=== PATIENT | male | born 1940 | race Caucasian/White ===

== ENCOUNTER → 2017-02-02 | Outpatient (CLI) | payer MEDICARE, OTHER ==
[2017-02-02 08:24] LABS: CHLORIDE,CL 106 mmol/L (98-110); SODIUM,NA 139 mmol/L (136-146)
== END ==
LOC: MW.CHFP 07:33
PROVIDERS: ATTEND Emergency Medicine
DX: Z00.00 Encounter for general adult medical examination without abnormal findings (principal); E79.0 Hyperuricemia without signs of inflammatory arthritis and tophaceous disease; R73.03 Prediabetes; R73.09 Other abnormal glucose
CPT/HCPCS: 36415; 80053; 80061; 83036; 99214

== ENCOUNTER 2018-02-15 08:22 | Day surgery (SDC) | payer MEDICARE, OTHER ==
[~2018-02-15 08:22] MED LIST: Lactated Ringers 1,000 ML IV SCH
--- NOTE | 2018-02-15 08:46 | PCM.PREANE ---
Preanesthetic Assessment - Anesthesia/Transfusion/Family Hx Anesthesia History: Prior Anesthesia Without Reaction Family History of Anesthesia Reaction: No Transfusion History: No Prior Transfusion(s) Intubation History: Unknown - Review of Systems General: No Symptoms Pulmonary: No Symptoms Cardiovascular: No Symptoms Gastrointestinal: No Symptoms, Other (h/o colon polyps) Neurological: No Symptoms Other: Reports: None - Physical Assessment Height: 1.8 m Weight: 83.915 kg ASA Class: 2 Mental Status: Alert & Oriented x3 Airway Class: Mallampati = 2 Dentition: Reports: Normal Dentition Thyro-Mental Finger Breadths: 3 Mouth Opening Finger Breadths: 2 ROM/Head Extension: Limited/Partial Lungs: Clear to Auscultation, Normal Respiratory Effort Cardiovascular: Regular Rate, Regular Rhythm - Allergies Allergies/Adverse Reactions: Allergies Allergy/AdvReac Type Severity Reaction Status Date / Time Sulfa (Sulfonamide Allergy Rash Verified 02/11/18 08:47 Antibiotics) - Blood Blood Available: No - Anesthesia Plan Pre-Op Medication Ordered: None - Acknowledgements Anesthesia Type Planned: MAC Pt an Appropriate Candidate for the Planned Anesthesia: Yes Alternatives and Risks of Anesthesia Discussed w Pt/Guardian: Yes Pt/Guardian Understands and Agrees with Anesthesia Plan: Yes PreAnesthesia Questionnaire HEENT History: Reports: Allergic Rhinitis, Other (See Below) Other HEENT History: wears glasses Gastrointestinal History: Reports: Colon Polyp Genitourinary History: Reports: BPH Musculoskeletal History: Reports: Fracture Other Musculoskeletal History: hx of fx arm x2 as a child Endocrine/Metabolic History: Reports: Other (See Below) Other Endocrine/Metabolic History: pre-diabetic, takes metformin Oncologic (Cancer) History: Reports: Basal Cell Carcinoma 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 - Past Surgical History HEENT Surgical History: Reports: Tonsillectomy GI Surgical History: Reports: Colonoscopy (x2 '08 (polyps), '13 normal), Hernia , Inguinal (bilateral), Hernia Repair/Other (umbilical) - SUBSTANCE USE Smoking Status *Q: Never Smoker Recreational Drug Use History: No - HOME MEDS Home Medications: Home Meds Ascorbate Calcium [Vitamin C] 500 mg PO DAILY 02/11/18 [History] Aspirin [Adult Low Dose Aspirin EC] 81 mg PO DAILY 02/11/18 [History] Finasteride 5 mg PO DAILY 02/11/18 [History] Lisinopril 2.5 mg PO DAILY 02/11/18 [History] Loratadine [Claritin] 10 mg PO DAILY 02/11/18 [History] Multivit-Min/FA/Lycopene/Lut [Centrum Silver Tablet] 1 tab PO DAILY 02/11/18 [ History] metFORMIN HCl [Metformin HCl ER] 500 mg PO QPM 02/11/18 [History] - CURRENT (IN HOUSE) MEDS Current Meds: Current Medications Lactated Ringer's (Ringers, Lactated) 1,000 mls @ 125 mls/hr IV ASDIRECTED GUZMAN
[2018-02-15] MEDS ORDERED: Midazolam 1 MG/ML 2 ML SDV ONE (09:17)
[2018-02-15] MEDS ORDERED: Propofol 200 MG/20 ML SDV ONE ×2 (09:17→10:43)
[2018-02-15] MEDS ORDERED: fentaNYL 100 MCG/2 ML SDV ONE (09:17)
[2018-02-15] MEDS ORDERED: Lidocaine 2% 5 ML SDV ONE (09:17)
--- NOTE | 2018-02-15 10:22 | PCM.OPNOTE ---
- General Post-Op/Procedure Note Date of Surgery/Procedure: 02/15/18 Operative Procedure(s): Colonoscopy Pre Op Diagnosis: Personal history of colon polyps Post-Op Diagnosis: Pancolonic diverticulosis Anesthesia Technique: MAC (ASA II) Primary Surgeon: Solitario Mora Condition: Good Free Text/Narrative:: DICTATION [id number] CPT CODE 03912
[2018-02-15] MEDS ORDERED: Lactated Ringers 1,000 ML IV SCH (10:30)
--- NOTE | 2018-02-15 10:52 | PCM.POSTAN ---
POST ANESTHESIA ASSESSMENT - MENTAL STATUS Mental Status: Alert, Oriented - RESPIRATORY Respiratory Status: Respiratory Rate WNL, Airway Patent, O2 Saturation Stable - CARDIOVASCULAR CV Status: Pulse Rate WNL - GASTROINTESTINAL GI Status: No Symptoms - PAIN Pain Score: 0 - POST OP HYDRATION Hydration Status: Adequate & Stable - OBSERVATIONS Free Text/Narrative:: no anesthesia problems
--- NOTE | 2018-02-15 11:13 | PCM48HPAN ---
Post Anesthesia Note - EVALUATION WITHIN 48HRS OF ANESTHETIC Vital Signs in Normal Range: Yes Patient Participated in Evaluation: Yes Respiratory Function Stable: Yes Airway Patent: Yes Cardiovascular Function Stable: Yes Hydration Status Stable: Yes Pain Control Satisfactory: Yes Nausea and Vomiting Control Satisfactory: Yes Mental Status Recovered: Yes Resp Rate: 9 - COMMENTS/OBSERVATIONS Free Text/Narrative:: no anesthesia problems
--- NOTE | 2018-02-15 14:13 | OR ---
SURGEON: Solitario Mora M.D. DATE OF PROCEDURE: 02/15/2018 OPERATION PERFORMED: Colonoscopy. ANESTHESIA: MAC. ASA CLASSIFICATION: II. PREOPERATIVE DIAGNOSIS: Personal history of colon polyps. POSTOPERATIVE DIAGNOSIS: Pancolonic diverticulosis. DESCRIPTION OF PROCEDURE: The patient was taken to the endoscopy room, positioned on the endoscopy table in the left lateral decubitus position. Time-out was called for appropriate identification of the patient and procedure. Monitored anesthesia care was provided. The colonoscope was inserted into the rectum and advanced with minimal difficulty to the cecum where the colonoscope was retroflexed to visualize the ascending colon from below. The colonoscope was then straightened and slowly withdrawn. The patient does have diverticular changes scattered throughout the entire length of the colon beginning in the ascending colon. The cecum, ascending colon, hepatic flexure, transverse colon, splenic flexure, descending colon, sigmoid colon, and rectum were very well visualized. No tumors or polyps were encountered. Once the colonoscope was withdrawn to the rectum, it was retroflexed to visualize the anal orifice from above. Again, no tumors or polyps were seen. There were no acute hemorrhoidal changes. The colonoscope was then straightened, the rectum aspirated, and the colonoscope removed. The patient tolerated the procedure well and was taken to recovery room in stable condition. YAMILETH / ADEOLA /[id number]
== END 2018-02-15 11:11 | disposition home or self-care (01) ==
LOC: MW.SDS 08:22
PROVIDERS: ATTEND Surgery
DX: Z12.11 Encounter for screening for malignant neoplasm of colon (principal); K57.30 Diverticulosis of large intestine without perforation or abscess without bleeding; R73.03 Prediabetes; Z86.010 Personal history of colon polyps; Z79.82 Long term (current) use of aspirin; Z79.84 Long term (current) use of oral hypoglycemic drugs; Z79.899 Other long term (current) drug therapy; Z88.2 Allergy status to sulfonamides; Z91.048 Other nonmedicinal substance allergy status
CPT/HCPCS: G0121; J2250; J3010; J7120; 00811; J2704

== ENCOUNTER 2020-04-07 14:39 | Observation (INO) | payer MEDICARE, OTHER ==
[2020-04-07] MEDS ORDERED: Sodium Chloride 0.9% 2.5 ML Syringe FLUSH PRN (15:06)
[2020-04-07] MEDS ORDERED: Sodium Chloride 0.9% 10 ML Syringe FLUSH PRN (15:06)
[2020-04-07] MEDS ORDERED: Sodium Chloride 0.9% 1,000 ML IV ONE (15:06)
--- NOTE | 2020-04-07 15:31 | EDM.PDOC ---
ED HPI GENERAL MEDICAL PROBLEM - General Chief Complaint: Abdominal Pain Stated Complaint: ABDOMINAL PAIN Time Seen by Provider: 04/07/20 15:05 Source of Information: Reports: Patient History Limitations: Reports: No Limitations - History of Present Illness INITIAL COMMENTS - FREE TEXT/NARRATIVE: HISTORY AND PHYSICAL: History of present illness: Patient is a 79-year-old male who resents to the emergency room with complaints of right lower quadrant pain. He states he was woken up around midnight with right lower quadrant pain that has progressively become more severe/stronger. He describes the pain as a sharp stabbing pain. Patient denies any fever, chills, headache, change in vision, syncope or near syncope. Denies any chest pain, back pain, shortness of breath or cough. Denies any nausea, vomiting, diarrhea, constipation or dysuria. Has not noted any blood in urine or stool. Patient has been eating and drinking appropriately. Review of systems: As per history of present illness and below otherwise all systems reviewed and negative. Past medical history: As per history of present illness and as reviewed below otherwise noncontributory. Surgical history: As per history of present illness and as reviewed below otherwise noncontributory. Social history: See social history for further information Family history: As per history of present illness and as reviewed below otherwise noncontributory. Physical exam: General: Well-developed and well-nourished 79-year-old male. Alert and oriented. Nontoxic-appearing and in no acute distress. Vital signs are stable and have been reviewed by me. HEENT: Atraumatic, normocephalic, pupils equal and reactive bilaterally, negative for conjunctival pallor or scleral icterus, mucous membranes moist, trachea midline. No drooling or trismus noted. No meningeal signs. No hot potato voice noted. Lungs: Clear to auscultation, breath sounds equal bilaterally, chest nontender. Heart: S1S2, regular rate and rhythm without overt murmur Abdomen: Soft, nondistended, right lower quadrant tenderness with rebound tenderness. Negative for masses or hepatosplenomegaly. Negative for costovertebral tenderness. Pelvis: Stable nontender. Skin: Intact, warm, dry. No lesions or rashes noted. Extremities: Atraumatic, moves all extremities per self without difficulty or deficits, negative for cords or calf pain. Neurovascular unremarkable. Neuro: Awake, alert, oriented. Cranial nerves II through XII unremarkable. Cerebellum unremarkable. Motor and sensory unremarkable throughout. Exam nonfocal. Notes: At this time patient declines wanting anything for pain. He is agreeable to lab work and CT scan of the abdomen and pelvis. T shows acute uncomplicated appendicitis. Some incidental findings include irregular prostate with asymmetric soft tissue extension towards the bladder. Concerning for malignancy, recommended prostate and bladder evaluation. 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 No evidence that this is leaking. The radiologist states this appears stable. I did contact Dr. Mora the general surgeon tactical air control party manager about this patient. He is agreeable to coming in and evaluating this patient. Dr. Mora here to evaluate patient. He will take him to the OR. I did discuss with patient his other incidental findings and the need for follow-up on these. Voices understanding and is agreeable to plan of care. Diagnostics: CBC, CMP, UA, CT abdomen and pelvis Therapeutics: IV fluid, morphine Impression: Appendicitis Aortic aneurysm Abnormal prostate Plan: To OR with Morgan for appendectomy Definitive disposition and diagnosis as appropriate pending reevaluation and review of above. right abdominal Pain Score (Numeric/FACES): 8 - Related Data Allergies Allergy/AdvReac Type Severity Reaction Status Date / Time Sulfa (Sulfonamide Allergy Rash Verified 04/07/20 14:59 Antibiotics) Home Meds: Home Meds Finasteride 5 mg PO DAILY 02/11/18 [History] Lisinopril 2.5 mg PO DAILY 02/11/18 [History] Loratadine [Claritin] 10 mg PO DAILY 02/11/18 [History] Multivit-Min/FA/Lycopen/Lutein [Centrum Silver Tablet] 1 tab PO DAILY 02/11/18 [History] metFORMIN HCl [Metformin HCl ER] 500 mg PO QPM 02/11/18 [History] Past Medical History HEENT History: Reports: Allergic Rhinitis, Other (See Below) Other HEENT History: wears glasses Gastrointestinal History: Reports: Colon Polyp Genitourinary History: Reports: BPH Musculoskeletal History: Reports: Fracture Other Musculoskeletal History: hx of fx arm x2 as a child Endocrine/Metabolic History: Reports: Other (See Below) Other Endocrine/Metabolic History: pre-diabetic, takes metformin Oncologic (Cancer) History: Reports: Basal Cell Carcinoma 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 ED EXAM, GI/ABD - Physical Exam Exam: See Below (See dictation) Course - Vital Signs Last Recorded V/S: Last Vital Signs Temp 96.3 F L 04/07/20 14:59 Pulse 70 04/07/20 14:59 Resp 18 04/07/20 14:59 BP 140/69 04/07/20 14:59 Pulse Ox 97 04/07/20 14:59 - Orders/Labs/Meds Orders: Active Orders 24 hr Category Date Time Status Admission Status [Patient Status] [ADT] Stat ADT 04/07/20 17:57 Active Antiembolic Devices [RC] PER UNIT ROUTINE Care 04/07/20 18:45 Active Insert Urinary Catheter [OM.PC] Timed Care 04/07/20 18:45 Ordered Oxygen Therapy [RC] ASDIRECTED Care 04/07/20 18:45 Active RT Incentive Spirometry [RC] Q1HWA Care 04/07/20 18:45 Active Skin Preparation [RC] .PREOP Care 04/07/20 18:45 Active Urinary Catheter Assessment [RC] ASDIRECTED Care 04/07/20 18:45 Active Urinary Catheter Assessment [RC] ASDIRECTED Care 04/07/20 18:45 Active Urinary Catheter Assessment [RC] ASDIRECTED Care 04/07/20 18:45 Active Vital Signs [RC] PER UNIT ROUTINE Care 04/07/20 18:45 Active Nothing Per Oral Diet [DIET] Diet 04/07/20 Dinner Active Lactated Ringers [Ringers, Lactated] 1,000 ml Med 04/07/20 18:45 Active IV ASDIRECTED Lactated Ringers [Ringers, Lactated] 1,000 ml Med 04/07/20 18:45 Ordered IV ASDIRECTED Sodium Chloride 0.9% [Saline Flush] Med 04/07/20 15:06 Active 10 ml FLUSH ASDIRECTED PRN Sodium Chloride 0.9% [Saline Flush] Med 04/07/20 15:06 Active 2.5 ml FLUSH ASDIRECTED PRN cefOXitin [Mefoxin in Dextrose,Iso-Osm 2 GM/50 ML] 2 gm Med 04/07/20 18:35 Active Premix Bag 1 bag IV ONETIME Antiembolic Hose [OM.PC] Routine Oth 04/07/20 18:45 Ordered Saline Lock Insert [OM.PC] Stat Oth 04/07/20 15:06 Ordered Resuscitation Status Routine Resus Stat 04/07/20 18:45 Ordered Medication Orders Cefoxitin Sodium 2 gm/ Premix 50 mls @ 100 mls/hr IV ONETIME ONE Stop: 04/07/20 19:04 Last Admin: 04/07/20 18:44 Dose: 100 mls/hr Documented by: LOUIE Lactated Ringer's (Ringers, Lactated) 1,000 mls @ 150 mls/hr IV ASDIRECTED GUZMAN Last Admin: 04/07/20 18:44 Dose: 150 mls/hr Documented by: LOUIE Lactated Ringer's (Ringers, Lactated) 1,000 mls @ 125 mls/hr IV ASDIRECTED GUZMAN Sodium Chloride (Saline Flush) 10 ml FLUSH ASDIRECTED PRN PRN Reason: Keep Vein Open Sodium Chloride (Saline Flush) 2.5 ml FLUSH ASDIRECTED PRN PRN Reason: Keep Vein Open Labs: Laboratory Tests 04/07/20 04/07/20 04/07/20 Range/Units 15:39 15:39 15:39 WBC 13.74 H (4.0-11.0) K/uL RBC 5.08 (4.50-5.90) M/uL Hgb 14.7 (13.0-17.0) g/dL Hct 44.2 (38.0-50.0) % MCV 87.0 (80.0-98.0) fL MCH 28.9 (27.0-32.0) pg MCHC 33.3 (31.0-37.0) g/dL RDW Std Deviation 43.8 (28.0-62.0) fl RDW Coeff of Horacio 14 (11.0-15.0) % Plt Count 264 (150-400) K/uL MPV 9.20 (7.40-12.00) fL Neut % (Auto) 80.2 H (48.0-80.0) % Lymph % (Auto) 11.4 L (16.0-40.0) % Jackson % (Auto) 7.6 (0.0-15.0) % Eos % (Auto) 0.7 (0.0-7.0) % Baso % (Auto) 0.1 (0.0-1.5) % Neut # (Auto) 11.0 H (1.4-5.7) K/uL Lymph # (Auto) 1.6 (0.6-2.4) K/uL Jackson # (Auto) 1.0 H (0.0-0.8) K/uL Eos # (Auto) 0.1 (0.0-0.7) K/uL Baso # (Auto) 0.0 (0.0-0.1) K/uL Nucleated RBC % 0.0 /100WBC Nucleated RBCs # 0 K/uL Sodium 128 L (136-148) mmol/L Potassium 4.2 (3.5-5.1) mmol/L Chloride 93 L (98-107) mmol/L Carbon Dioxide 25.6 (21.0-32.0) mmol/L BUN 12 (7.0-18.0) mg/dL Creatinine 0.8 (0.8-1.3) mg/dL Est Cr Clr Drug Dosing 81.05 mL/min Estimated GFR (MDRD) > 60.0 ml/min Glucose 92 (74-106) mg/dL Calcium 8.6 (8.5-10.1) mg/dL Total Bilirubin 0.4 (0.2-1.0) mg/dL AST 16 (15-37) IU/L ALT 26 (14-63) IU/L Alkaline Phosphatase 64 (46-116) U/L Total Protein 7.7 (6.4-8.2) g/dL Albumin 4.2 (3.4-5.0) g/dL Globulin 3.5 (2.6-4.0) g/dL Albumin/Globulin Ratio 1.2 (0.9-1.6) Urine Color YELLOW Urine Appearance CLEAR Urine pH 6.0 (5.0-8.0) Ur Specific [place] >= 1.030 (1.001-1.035) Urine Protein NEGATIVE (NEGATIVE) mg/dL Urine Glucose (UA) NEGATIVE (NEGATIVE) mg/dL Urine Ketones 40 H (NEGATIVE) mg/dL Urine Occult Blood NEGATIVE (NEGATIVE) Urine Nitrite NEGATIVE (NEGATIVE) Urine Bilirubin NEGATIVE (NEGATIVE) Urine Urobilinogen 0.2 (<2.0) EU/dL Ur Leukocyte Esterase NEGATIVE (NEGATIVE) COVID-19 (KYLEE) (NEGATIVE) 04/07/20 Range/Units 17:55 WBC (4.0-11.0) K/uL RBC (4.50-5.90) M/uL Hgb (13.0-17.0) g/dL Hct (38.0-50.0) % MCV (80.0-98.0) fL MCH (27.0-32.0) pg MCHC (31.0-37.0) g/dL RDW Std Deviation (28.0-62.0) fl RDW Coeff of Horacio (11.0-15.0) % Plt Count (150-400) K/uL MPV (7.40-12.00) fL Neut % (Auto) (48.0-80.0) % Lymph % (Auto) (16.0-40.0) % Jackson % (Auto) (0.0-15.0) % Eos % (Auto) (0.0-7.0) % Baso % (Auto) (0.0-1.5) % Neut # (Auto) (1.4-5.7) K/uL Lymph # (Auto) (0.6-2.4) K/uL Jackson # (Auto) (0.0-0.8) K/uL Eos # (Auto) (0.0-0.7) K/uL Baso # (Auto) (0.0-0.1) K/uL Nucleated RBC % /100WBC Nucleated RBCs # K/uL Sodium (136-148) mmol/L Potassium (3.5-5.1) mmol/L Chloride (98-107) mmol/L Carbon Dioxide (21.0-32.0) mmol/L BUN (7.0-18.0) mg/dL Creatinine (0.8-1.3) mg/dL Est Cr Clr Drug Dosing mL/min Estimated GFR (MDRD) ml/min Glucose (74-106) mg/dL Calcium (8.5-10.1) mg/dL Total Bilirubin (0.2-1.0) mg/dL AST (15-37) IU/L ALT (14-63) IU/L Alkaline Phosphatase (46-116) U/L Total Protein (6.4-8.2) g/dL Albumin (3.4-5.0) g/dL Globulin (2.6-4.0) g/dL Albumin/Globulin Ratio (0.9-1.6) Urine Color Urine Appearance Urine pH (5.0-8.0) Ur Specific [place] (1.001-1.035) Urine Protein (NEGATIVE) mg/dL Urine Glucose (UA) (NEGATIVE) mg/dL Urine Ketones (NEGATIVE) mg/dL Urine Occult Blood (NEGATIVE) Urine Nitrite (NEGATIVE) Urine Bilirubin (NEGATIVE) Urine Urobilinogen (<2.0) EU/dL Ur Leukocyte Esterase (NEGATIVE) COVID-19 (KYLEE) NEGATIVE (NEGATIVE) Meds: Medications Generic Name Dose Route Start Last Admin Trade Name Freq PRN Reason Stop Dose Admin Cefoxitin Sodium 2 gm/ Premix 50 mls @ 100 mls/hr 04/07/20 18:35 04/07/20 18:44 IV 04/07/20 19:04 100 mls/hr ONETIME ONE Administration Lactated Ringer's 1,000 mls @ 150 mls/hr 04/07/20 18:45 04/07/20 18:44 Ringers, Lactated IV 150 mls/hr ASDIRECTED GUZMAN Administration Lactated Ringer's 1,000 mls @ 125 mls/hr 04/07/20 18:45 Ringers, Lactated IV ASDIRECTED GUZMAN Sodium Chloride 10 ml 04/07/20 15:06 Saline Flush FLUSH ASDIRECTED PRN Keep Vein Open Sodium Chloride 2.5 ml 04/07/20 15:06 Saline Flush FLUSH ASDIRECTED PRN Keep Vein Open Discontinued Medications Generic Name Dose Route Start Last Admin Trade Name Freq PRN Reason Stop Dose Admin Bupivacaine HCl Confirm 04/07/20 18:15 Sensorcaine-Mpf 0.5% Administered 04/07/20 18:16 Dose 10 ml .ROUTE .STK-MED ONE Cefazolin Sodium Confirm 04/07/20 18:15 Ancef Administered 04/07/20 18:16 Dose 1 gm .ROUTE .STK-MED ONE Sodium Chloride 1,000 mls @ 999 mls/hr 04/07/20 15:06 04/07/20 15:58 Normal Saline IV 04/07/20 16:06 999 mls/hr STAT ONE Administration Iopamidol 100 ml 04/07/20 17:01 04/07/20 17:01 Isovue Multipack-370 (76%) IVPUSH 04/07/20 17:02 100 ml ONETIME ONE Administration Morphine Sulfate 2 mg 04/07/20 17:52 04/07/20 17:58 Morphine IVPUSH 04/07/20 17:53 2 mg ONETIME ONE Administration Departure - Departure Time of Disposition: 18:47 Disposition: Still A Patient 30 Clinical Impression: Prostate enlargement Appendicitis Qualifiers: Appendicitis type: acute appendicitis Acute appendicitis type: with localized peritonitis Appendicitis gangrene presence: without gangrene Appendicitis perforation presence: without perforation Appendicitis abscess presence: without abscess Qualified Code(s): K35.30 - Acute appendicitis with localized peritonitis, without perforation or gangrene Aortic aneurysm Qualifiers: Aortic location: unspecified Presence of rupture: without rupture Qualified Code(s): I71.9 - Aortic aneurysm of unspecified site, without rupture - Discharge Information Sepsis Event Note (ED) - Evaluation Sepsis Screening Result: No Definite Risk - Focused Exam Vital Signs: Vital Signs Temp Pulse Resp BP Pulse Ox 04/07/20 14:59 96.3 F L 70 18 140/69 97 - My Orders Last 24 Hours: My Active Orders 04/07/20 15:06 Sodium Chloride 0.9% [Saline Flush] 10 ml FLUSH ASDIRECTED PRN Sodium Chloride 0.9% [Saline Flush] 2.5 ml FLUSH ASDIRECTED PRN Saline Lock Insert [OM.PC] Stat 04/07/20 17:57 Admission Status [Patient Status] [ADT] Stat - Assessment/Plan Last 24 Hours: My Active Orders 04/07/20 15:06 Sodium Chloride 0.9% [Saline Flush] 10 ml FLUSH ASDIRECTED PRN Sodium Chloride 0.9% [Saline Flush] 2.5 ml FLUSH ASDIRECTED PRN Saline Lock Insert [OM.PC] Stat 04/07/20 17:57 Admission Status [Patient Status] [ADT] Stat
[2020-04-07 16:08] LABS: BLOOD UREA NITROGEN,BUN 12 mg/dL (7.0-18.0); CARBON DIOXIDE,CO2 25.6 mmol/L (21.0-32.0); CHLORIDE,CL 93 mmol/L (98-107); GLUCOSE RANDOM 92 mg/dL (74-106); POTASSIUM,K 4.2 mmol/L (3.5-5.1); SODIUM,NA 128 mmol/L (136-148)
[2020-04-07] MEDS ORDERED: Iopamidol 755 MG/ML 200 ML Multipack Bottle IVPUSH ONE (17:01)
--- NOTE | 2020-04-07 17:50 | CT ---
INDICATION: Right lower quadrant pain. COMPARISON: None TECHNIQUE: CT examination of the abdomen and pelvis was performed following the uneventful intravenous administration of 100 cc of Isovue 370. Thin section axial images were obtained from the lung bases through the pubic symphysis. Oral contrast was not administered. Please note that all CT scans at this facility use dose modulation, iterative reconstruction, and/or weight-based dosing when appropriate to reduce radiation dose to as low as reasonably achievable. FINDINGS: LUNG BASES: The lung bases as visualized appear normal. The heart size is normal at the lung bases. LIVER/BILIARY SYSTEM:The liver is normal in size and configuration. There is no focal mass and there is no intra- or extra hepatic biliary ductal dilatation.The gall bladder appears normal. ADRENALS: Normal KIDNEYS, URETERS and BLADDER:The kidneys appear normal. The prostate is enlarged with eccentric peripheral extension of the superior and posterior lateral right prostate which might be malignant. This extends towards the bladder base. No definite adenopathy. Formal evaluation of the prostate and bladder is recommended at a clinically appropriate time. SPLEEN:Normal appearance. PANCREAS: Appears normal. RETROPERITONEUM and MESENTERY: There is a saccular aneurysm of the distal abdominal aorta with eccentric mural thrombus measuring 4.0 centimeters. There is no evidence that this is leaking at the current time. GASTROINTESTINAL SYSTEM: Acute uncomplicated appendicitis. Diverticulosis. No diverticulitis. Fecal retention. Normal appearing small bowel. PELVIS: Abnormal prostate extending towards the bladder as discussed above. OSSEOUS STRUCTURES and ABDOMINAL WALL: There is an age-appropriate appearance of the osseous structures.No significant abdominal wall defect. OTHER: No free fluid or free air. IMPRESSION: 1. Acute uncomplicated appendicitis. 2. Irregular prostate with asymmetric soft tissue extension towards the bladder as described. This could be malignant. Full formal evaluation the prostate and bladder is recommended at a clinically appropriate time. 3. 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 There is no evidence that this is leaking at this time. 4. I discussed the above findings with Mecca Jarrett at 5:45 p.m. on April 07, [address] note that all [address] scans at this facility use dose modulation, iterative reconstruction, and/or weight-based dosing when appropriate to reduce radiation dose to as low as reasonably achievable. Dictated by Jordan Polanco MD @ Apr 07 2020 5:41PM Signed by Dr. Jordan Polanco @ Apr 07 2020 5:49PM
[2020-04-07] MEDS ORDERED: Morphine 2 MG/ML SYRINGE IVPUSH ONE (17:52)
[2020-04-07] MEDS ORDERED: ceFAZolin 1 GM Vial ONE (18:15)
[2020-04-07] MEDS ORDERED: Bupivacaine 0.5% 10 ML SDV ONE (18:15)
[2020-04-07] MEDS ORDERED: cefOXitin 2 GM in Premix Bag 1 BAG IV ONE (18:35)
[2020-04-07] MEDS ORDERED: Lactated Ringers 1,000 ML IV SCH ×2 (18:45)
--- NOTE | 2020-04-07 18:51 | PCM.CONS ---
H&P History of Present Illness - General Date of Service: 04/07/20 Admit Problem/Dx: Admission Diagnosis/Problem Admission Diagnosis/Problem Appendicitis Source of Information: Patient History Limitations: Reports: No Limitations - History of Present Illness Initial Comments - Free Text/Narative: Patient is a 79-year-old gentleman who presented to the emergency room today co mplaining of right lower quadrant abdominal pain. Patient states the pain started about midnight and did awaken him. It has gradually become more intense through the day. He denies any fever or chills. No nausea or vomiting. He did eat some breakfast this morning all of a sudden not this much as usual. He says his appetite is poor. He is not really hungry right now. He does note mild pain on ambulation. Symptom Onset Date: 04/07/20 Symptom Onset Time: 00:00 Duration of Symptoms: Reports: Constant, Getting Worse Location: Reports: Abdomen Quality: Reports: Pressure Severity: Moderate Improves with: Reports: Rest Worsens with: Reports: Movement Associated Symptoms: Reports: No Other Symptoms right abdominal Pain Score (Numeric/FACES): 8 - Related Data Allergies/Adverse Reactions: Allergies Allergy/AdvReac Type Severity Reaction Status Date / Time Sulfa (Sulfonamide Allergy Rash Verified 04/07/20 14:59 Antibiotics) Home Medications: Home Meds Finasteride 5 mg PO DAILY 02/11/18 [History] Lisinopril 2.5 mg PO DAILY 02/11/18 [History] Loratadine [Claritin] 10 mg PO DAILY 02/11/18 [History] Multivit-Min/FA/Lycopen/Lutein [Centrum Silver Tablet] 1 tab PO DAILY 02/11/18 [History] metFORMIN HCl [Metformin HCl ER] 500 mg PO QPM 02/11/18 [History] Past Medical History HEENT History: Reports: Allergic Rhinitis, Other (See Below) Other HEENT History: wears glasses Gastrointestinal History: Reports: Colon Polyp Genitourinary History: Reports: BPH Musculoskeletal History: Reports: Fracture Other Musculoskeletal History: hx of fx arm x2 as a child Endocrine/Metabolic History: Reports: Other (See Below) Other Endocrine/Metabolic History: pre-diabetic, takes metformin Oncologic (Cancer) History: Reports: Basal Cell Carcinoma 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 Denies: Fever, Chills, Malaise, Weakness HEENT: Reports: No Symptoms Pulmonary: Denies: Shortness of Breath, Wheezing, Pleuritic Chest Pain Cardiovascular: Denies: Chest Pain, Palpitations Gastrointestinal: Reports: Abdominal Pain, Decreased Appetite, Flatus. Denies: Anorexia, Black Stool, Bloody Stool, Constipation, Diarrhea, Difficulty S wallowing (We's), Hematemesis, Hematochezia, Melena, Nausea, Vomiting Genitourinary: Reports: No Symptoms Musculoskeletal: Reports: No Symptoms Skin: Reports: No Symptoms Psychiatric: Denies: Confusion, Depression, Mood Lability, Anxiety Neurological: Reports: No Symptoms Hematologic/Lymphatic: Reports: No Symptoms Immunologic: Reports: No Symptoms Exam - Exam Exam: See Below - Vital Signs Vital Signs: Last Vital Signs Temp 96.3 F L 04/07/20 14:59 Pulse 70 04/07/20 14:59 Resp 18 04/07/20 14:59 BP 140/69 04/07/20 14:59 Pulse Ox 97 04/07/20 14:59 Weight: 180 lb - Exam Quality Assessment: DVT Prophylaxis. No: Supplemental Oxygen, Central Line/PICC, Urinary Catheter General: Alert, Oriented, Cooperative, Mild Distress HEENT: Conjunctiva Clear, Nares Patent, Pupils Equal, Pupils Reactive. No: Scleral Icterus Neck: Supple, Trachea Midline Lungs: Clear to Auscultation, Normal Respiratory Effort Cardiovascular: Regular Rate, Regular Rhythm, Normal S1, Normal S2. No: Tachycardia GI/Abdominal Exam: Normal Bowel Sounds, Soft, No Distention, Rebound, Tender (Right lower quadrant). No: Guarding, Rigid (Male) Exam: No Hernia Rectal (Males) Exam: Deferred Back Exam: Normal Inspection Extremities: Normal Inspection Peripheral Pulses: 4+: Posterior Tibial (L), Posterior Tibial (R), Dorsalis Pedis (L), Dorsalis Pedis (R) Skin: Warm, Dry, Intact Neurological: Cranial Nerves Intact Neuro Extensive - Mental Status: Alert, Oriented x3, Normal Mood/Affect, Normal Cognition, Memory Intact (.) Psychiatric: Alert, Normal Affect ( Right after the second storm about 11), Normal Mood - Patient Data Lab Results Last 24 hrs: Laboratory Results - last 24 hr 04/07/20 04/07/20 04/07/20 Range/Units 15:39 15:39 15:39 WBC 13.74 H (4.0-11.0) K/uL RBC 5.08 (4.50-5.90) M/uL Hgb 14.7 (13.0-17.0) g/dL Hct 44.2 (38.0-50.0) % MCV 87.0 (80.0-98.0) fL MCH 28.9 (27.0-32.0) pg MCHC 33.3 (31.0-37.0) g/dL RDW Std Deviation 43.8 (28.0-62.0) fl RDW Coeff of Horacio 14 (11.0-15.0) % Plt Count 264 (150-400) K/uL MPV 9.20 (7.40-12.00) fL Neut % (Auto) 80.2 H (48.0-80.0) % Lymph % (Auto) 11.4 L (16.0-40.0) % [place] % (Auto) 7.6 (0.0-15.0) % Eos % (Auto) 0.7 (0.0-7.0) % Baso % (Auto) 0.1 (0.0-1.5) % Neut # (Auto) 11.0 H (1.4-5.7) K/uL Lymph # (Auto) 1.6 (0.6-2.4) K/uL [place] # (Auto) 1.0 H (0.0-0.8) K/uL Eos # (Auto) 0.1 (0.0-0.7) K/uL Baso # (Auto) 0.0 (0.0-0.1) K/uL Nucleated RBC % 0.0 /100WBC Nucleated RBCs # 0 K/uL Sodium 128 L (136-148) mmol/L Potassium 4.2 (3.5-5.1) mmol/L Chloride 93 L (98-107) mmol/L Carbon Dioxide 25.6 (21.0-32.0) mmol/L BUN 12 (7.0-18.0) mg/dL Creatinine 0.8 (0.8-1.3) mg/dL Est Cr Clr Drug Dosing 81.05 mL/min Estimated GFR (MDRD) > 60.0 ml/min Glucose 92 (74-106) mg/dL Calcium 8.6 (8.5-10.1) mg/dL Total Bilirubin 0.4 (0.2-1.0) mg/dL AST 16 (15-37) IU/L ALT 26 (14-63) IU/L Alkaline Phosphatase 64 (46-116) U/L Total Protein 7.7 (6.4-8.2) g/dL Albumin 4.2 (3.4-5.0) g/dL Globulin 3.5 (2.6-4.0) g/dL Albumin/Globulin Ratio 1.2 (0.9-1.6) Urine Color YELLOW Urine Appearance CLEAR Urine pH 6.0 (5.0-8.0) Ur Specific [place] >= 1.030 (1.001-1.035) Urine Protein NEGATIVE (NEGATIVE) mg/dL Urine Glucose (UA) NEGATIVE (NEGATIVE) mg/dL Urine Ketones 40 H (NEGATIVE) mg/dL Urine Occult Blood NEGATIVE (NEGATIVE) Urine Nitrite NEGATIVE (NEGATIVE) Urine Bilirubin NEGATIVE (NEGATIVE) Urine Urobilinogen 0.2 (<2.0) EU/dL Ur Leukocyte Esterase NEGATIVE (NEGATIVE) COVID-19 (KYLEE) (NEGATIVE) 04/07/20 Range/Units 17:55 WBC (4.0-11.0) K/uL RBC (4.50-5.90) M/uL Hgb (13.0-17.0) g/dL Hct (38.0-50.0) % MCV (80.0-98.0) fL MCH (27.0-32.0) pg MCHC (31.0-37.0) g/dL RDW Std Deviation (28.0-62.0) fl RDW Coeff of Horacio (11.0-15.0) % Plt Count (150-400) K/uL MPV (7.40-12.00) fL Neut % (Auto) (48.0-80.0) % Lymph % (Auto) (16.0-40.0) % [place] % (Auto) (0.0-15.0) % Eos % (Auto) (0.0-7.0) % Baso % (Auto) (0.0-1.5) % Neut # (Auto) (1.4-5.7) K/uL Lymph # (Auto) (0.6-2.4) K/uL [place] # (Auto) (0.0-0.8) K/uL Eos # (Auto) (0.0-0.7) K/uL Baso # (Auto) (0.0-0.1) K/uL Nucleated RBC % /100WBC Nucleated RBCs # K/uL Sodium (136-148) mmol/L Potassium (3.5-5.1) mmol/L Chloride (98-107) mmol/L Carbon Dioxide (21.0-32.0) mmol/L BUN (7.0-18.0) mg/dL Creatinine (0.8-1.3) mg/dL Est Cr Clr Drug Dosing mL/min Estimated GFR (MDRD) ml/min Glucose (74-106) mg/dL Calcium (8.5-10.1) mg/dL Total Bilirubin (0.2-1.0) mg/dL AST (15-37) IU/L ALT (14-63) IU/L Alkaline Phosphatase (46-116) U/L Total Protein (6.4-8.2) g/dL Albumin (3.4-5.0) g/dL Globulin (2.6-4.0) g/dL Albumin/Globulin Ratio (0.9-1.6) Urine Color Urine Appearance Urine pH (5.0-8.0) Ur Specific [place] (1.001-1.035) Urine Protein (NEGATIVE) mg/dL Urine Glucose (UA) (NEGATIVE) mg/dL Urine Ketones (NEGATIVE) mg/dL Urine Occult Blood (NEGATIVE) Urine Nitrite (NEGATIVE) Urine Bilirubin (NEGATIVE) Urine Urobilinogen (<2.0) EU/dL Ur Leukocyte Esterase (NEGATIVE) COVID-19 (KYLEE) NEGATIVE (NEGATIVE) Result Diagrams: 04/07/20 15:39 04/07/20 15:39 Sepsis Event Note - Evaluation Sepsis Screening Result: No Definite Risk - Focused Exam Vital Signs: Vital Signs Temp Pulse Resp BP Pulse Ox 04/07/20 14:59 96.3 F L 70 18 140/69 97 Date Exam was Performed: 04/07/20 Time Exam was Performed: 18:46 Consult PN Assessment/Plan Procedures: Procedures ASSAY OF BLOOD/URIC ACID (08/01/19) COMPREHEN METABOLIC PANEL (08/01/19) GLYCOSYLATED HEMOGLOBIN TEST (08/01/19) IIV NO PRSV INCREASED AG IM (06/20/19) IIV4 VACC NO PRSV 0.5 ML IM (07/29/17) IMMUNIZATION ADMIN (06/20/19) LIPID PANEL (08/01/19) OFFICE/OUTPATIENT VISIT EST (06/20/19) PPSV23 VACC 2 YRS+ SUBQ/IM (07/29/17) ROUTINE VENIPUNCTURE (08/01/19) TD VACC NO PRESV 7 YRS+ IM (06/20/19) URINALYSIS AUTO W/O SCOPE (02/21/14) (1) Appendicitis SNOMED Code(s): 23978285 Code(s): K37 - UNSPECIFIED APPENDICITIS Priority: High Current Visit: Yes Qualifiers: Appendicitis type: acute appendicitis Acute appendicitis type: with localized peritonitis Appendicitis gangrene presence: without gangrene Appendicitis perforation presence: without perforation Appendicitis abscess presence: without abscess Qualified Code(s): K35.30 - Acute appendicitis with localized peritonitis, without perforation or gangrene Problem List Initiated/Reviewed/Updated: Yes My Orders Last 24 Hours: My Active Orders 04/07/20 Dinner Nothing Per Oral Diet [DIET] 04/07/20 18:35 cefOXitin [Mefoxin in Dextrose,Iso-Osm 2 GM/50 ML] 2 gm Premix Bag 1 bag IV ONETIME 04/07/20 18:45 Antiembolic Devices [RC] PER UNIT ROUTINE Insert Urinary Catheter [OM.PC] Timed Oxygen Therapy [RC] ASDIRECTED RT Incentive Spirometry [RC] Q1HWA Skin Preparation [RC] .PREOP Urinary Catheter Assessment [RC] ASDIRECTED Urinary Catheter Assessment [RC] ASDIRECTED Urinary Catheter Assessment [RC] ASDIRECTED Vital Signs [RC] PER UNIT ROUTINE Lactated Ringers @ 125 MLS/HR(1000ml) Lactated Ringers [Ringers, Lactated] 1,000 ml IV ASDIRECTED Lactated Ringers [Ringers, Lactated] 1,000 ml IV ASDIRECTED Antiembolic Hose [OM.PC] Routine Resuscitation Status Routine Plan: Laparoscopic appendectomy, possible open appendectomy. Both operative procedures, along with the risks, including, but not limited to, bleeding, infection, pneumonia, deep venous thrombosis, pulmonary emboli, myocardial infarction, and adjacent organ injury have been reviewed with the patient who voices understanding, offers no questions and agrees to proceed.
[2020-04-07] MEDS ORDERED: Rocuronium Bromide 50 MG/5 ML Syringe ONE ×2 (18:53→18:56)
[2020-04-07] MEDS ORDERED: Ondansetron 4 MG/2 ML SDV ONE (18:53)
[2020-04-07] MEDS ORDERED: Propofol 200 MG/20 ML SDV ONE (18:53)
[2020-04-07] MEDS ORDERED: Lidocaine 2% 100 MG/5 ML Syringe ONE (18:53)
[2020-04-07] MEDS ORDERED: Midazolam 1 MG/ML 2 ML SDV ONE (18:54)
[2020-04-07] MEDS ORDERED: fentaNYL 250 MCG/5 ML SDV ONE (18:54)
[2020-04-07] MEDS ORDERED: Sugammadex Sodium 200 MG/2 ML VIAL ONE (18:57)
[2020-04-07] MEDS ORDERED: Ketorolac 30 MG/ML SDV ONE (18:58)
[2020-04-07] MEDS ORDERED: fentaNYL 100 MCG/2 ML SDV IVPUSH PRN (19:12)
[2020-04-07] MEDS ORDERED: Acetaminophen 1,000 MG in Premix Bag 1 BAG IV PRN (19:12)
--- NOTE | 2020-04-07 19:12 | PCM.PREANE ---
Preanesthetic Assessment - Anesthesia/Transfusion/Family Hx Anesthesia History: Prior Anesthesia Without Reaction Family History of Anesthesia Reaction: No Transfusion History: No Prior Transfusion(s) Intubation History: Unknown - Physical Assessment NPO Status Date: 04/07/20 NPO Status Time: 12:00 Vital Signs: Last Vital Signs Temp 35.7 C L 04/07/20 14:59 Pulse 70 04/07/20 14:59 Resp 18 04/07/20 14:59 BP 140/69 04/07/20 14:59 Pulse Ox 97 04/07/20 14:59 Height: 1.8 m Weight: 81.647 kg ASA Class: 2E Thyro-Mental Finger Breadths: 3 Mouth Opening Finger Breadths: 3 - Lab Values: Laboratory Last Values WBC 13.74 K/uL (4.0-11.0) H 04/07/20 15:39 RBC 5.08 M/uL (4.50-5.90) 04/07/20 15:39 Hgb 14.7 g/dL (13.0-17.0) 04/07/20 15:39 Hct 44.2 % (38.0-50.0) 04/07/20 15:39 MCV 87.0 fL (80.0-98.0) 04/07/20 15:39 MCH 28.9 pg (27.0-32.0) 04/07/20 15:39 MCHC 33.3 g/dL (31.0-37.0) 04/07/20 15:39 RDW Std Deviation 43.8 fl (28.0-62.0) 04/07/20 15:39 RDW Coeff of Horacio 14 % (11.0-15.0) 04/07/20 15:39 Plt Count 264 K/uL (150-400) 04/07/20 15:39 MPV 9.20 fL (7.40-12.00) 04/07/20 15:39 Neut % (Auto) 80.2 % (48.0-80.0) H 04/07/20 15:39 Lymph % (Auto) 11.4 % (16.0-40.0) L 04/07/20 15:39 [place] % (Auto) 7.6 % (0.0-15.0) 04/07/20 15:39 Eos % (Auto) 0.7 % (0.0-7.0) 04/07/20 15:39 Baso % (Auto) 0.1 % (0.0-1.5) 04/07/20 15:39 Neut # (Auto) 11.0 K/uL (1.4-5.7) H 04/07/20 15:39 Lymph # (Auto) 1.6 K/uL (0.6-2.4) 04/07/20 15:39 [place] # (Auto) 1.0 K/uL (0.0-0.8) H 04/07/20 15:39 Eos # (Auto) 0.1 K/uL (0.0-0.7) 04/07/20 15:39 Baso # (Auto) 0.0 K/uL (0.0-0.1) 04/07/20 15:39 Nucleated RBC % 0.0 /100WBC 04/07/20 15:39 Nucleated RBCs # 0 K/uL 04/07/20 15:39 Sodium 128 mmol/L (136-148) L 04/07/20 15:39 Potassium 4.2 mmol/L (3.5-5.1) 04/07/20 15:39 Chloride 93 mmol/L (98-107) L 04/07/20 15:39 Carbon Dioxide 25.6 mmol/L (21.0-32.0) 04/07/20 15:39 BUN 12 mg/dL (7.0-18.0) 04/07/20 15:39 Creatinine 0.8 mg/dL (0.8-1.3) 04/07/20 15:39 Est Cr Clr Drug Dosing 81.05 mL/min 04/07/20 15:39 Estimated GFR (MDRD) > 60.0 ml/min 04/07/20 15:39 Glucose 92 mg/dL (74-106) 04/07/20 15:39 Calcium 8.6 mg/dL (8.5-10.1) 04/07/20 15:39 Total Bilirubin 0.4 mg/dL (0.2-1.0) 04/07/20 15:39 AST 16 IU/L (15-37) 04/07/20 15:39 ALT 26 IU/L (14-63) 04/07/20 15:39 Alkaline Phosphatase 64 U/L (46-116) 04/07/20 15:39 Total Protein 7.7 g/dL (6.4-8.2) 04/07/20 15:39 Albumin 4.2 g/dL (3.4-5.0) 04/07/20 15:39 Globulin 3.5 g/dL (2.6-4.0) 04/07/20 15:39 Albumin/Globulin Ratio 1.2 (0.9-1.6) 04/07/20 15:39 Urine Color YELLOW 04/07/20 15:39 Urine Appearance CLEAR 04/07/20 15:39 Urine pH 6.0 (5.0-8.0) 04/07/20 15:39 Ur Specific [place] >= 1.030 (1.001-1.035) 04/07/20 15:39 Urine Protein NEGATIVE mg/dL (NEGATIVE) 04/07/20 15:39 Urine Glucose (UA) NEGATIVE mg/dL (NEGATIVE) 04/07/20 15:39 Urine Ketones 40 mg/dL (NEGATIVE) H 04/07/20 15:39 Urine Occult Blood NEGATIVE (NEGATIVE) 04/07/20 15:39 Urine Nitrite NEGATIVE (NEGATIVE) 04/07/20 15:39 Urine Bilirubin NEGATIVE (NEGATIVE) 04/07/20 15:39 Urine Urobilinogen 0.2 EU/dL (<2.0) 04/07/20 15:39 Ur Leukocyte Esterase NEGATIVE (NEGATIVE) 04/07/20 15:39 COVID-19 (KYLEE) NEGATIVE (NEGATIVE) 04/07/20 17:55 - Allergies Allergies/Adverse Reactions: Allergies Allergy/AdvReac Type Severity Reaction Status Date / Time Sulfa (Sulfonamide Allergy Rash Verified 04/07/20 14:59 Antibiotics) - Acknowledgements Anesthesia Type Planned: General Anesthesia Pt an Appropriate Candidate for the Planned Anesthesia: Yes Alternatives and Risks of Anesthesia Discussed w Pt/Guardian: Yes Pt/Guardian Understands and Agrees with Anesthesia Plan: Yes PreAnesthesia Questionnaire HEENT History: Reports: Allergic Rhinitis, Other (See Below) Other HEENT History: wears glasses Gastrointestinal History: Reports: Colon Polyp Genitourinary History: Reports: BPH Musculoskeletal History: Reports: Fracture Other Musculoskeletal History: hx of fx arm x2 as a child Endocrine/Metabolic History: Reports: Other (See Below) Other Endocrine/Metabolic History: pre-diabetic, takes metformin Oncologic (Cancer) History: Reports: Basal Cell Carcinoma 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 - Infectious Disease History Infectious Disease History: Reports: None - Past Surgical History HEENT Surgical History: Reports: Tonsillectomy GI Surgical History: Reports: Colonoscopy, Hernia, Inguinal, Hernia Repair/Other - SUBSTANCE USE Smoking Status *Q: Never Smoker - HOME MEDS Home Medications: Home Meds Finasteride 5 mg PO DAILY 02/11/18 [History] Lisinopril 2.5 mg PO DAILY 02/11/18 [History] Loratadine [Claritin] 10 mg PO DAILY 02/11/18 [History] Multivit-Min/FA/Lycopen/Lutein [Centrum Silver Tablet] 1 tab PO DAILY 02/11/18 [History] metFORMIN HCl [Metformin HCl ER] 500 mg PO QPM 02/11/18 [History] - CURRENT (IN HOUSE) MEDS Current Meds: Current Medications Lactated Ringer's (Ringers, Lactated) 1,000 mls @ 150 mls/hr IV ASDIRECTED GUZMAN Last Admin: 04/07/20 18:44 Dose: 150 mls/hr Documented by: Lactated Ringer's (Ringers, Lactated) 1,000 mls @ 125 mls/hr IV ASDIRECTED GUZMAN Sodium Chloride (Saline Flush) 10 ml FLUSH ASDIRECTED PRN PRN Reason: Keep Vein Open Sodium Chloride (Saline Flush) 2.5 ml FLUSH ASDIRECTED PRN PRN Reason: Keep Vein Open Discontinued Medications Bupivacaine HCl (Sensorcaine-Mpf 0.5%) Confirm Administered Dose 10 ml .ROUTE .STK-MED ONE Stop: 04/07/20 18:16 Cefazolin Sodium (Ancef) Confirm Administered Dose 1 gm .ROUTE .STK-MED ONE Stop: 04/07/20 18:16 Fentanyl (Sublimaze) Confirm Administered Dose 250 mcg .ROUTE .STK-MED ONE Stop: 04/07/20 18:55 Sodium Chloride (Normal Saline) 1,000 mls @ 999 mls/hr IV STAT ONE Stop: 04/07/20 16:06 Last Admin: 04/07/20 15:58 Dose: 999 mls/hr Documented by: Cefoxitin Sodium 2 gm/ Premix 50 mls @ 100 mls/hr IV ONETIME ONE Stop: 04/07/20 19:04 Last Admin: 04/07/20 18:44 Dose: 100 mls/hr Documented by: Iopamidol (Isovue Multipack-370 (76%)) 100 ml IVPUSH ONETIME ONE Stop: 04/07/20 17:02 Last Admin: 04/07/20 17:01 Dose: 100 ml Documented by: Ketorolac Tromethamine (Toradol) Confirm Administered Dose 30 mg .ROUTE .STK-MED ONE Stop: 04/07/20 18:59 Lidocaine HCl (Xylocaine 2%) Confirm Administered Dose 100 mg .ROUTE .STK-MED ONE Stop: 04/07/20 18:54 Midazolam HCl (Versed 1 Mg/Ml) Confirm Administered Dose 2 mg .ROUTE .STK-MED ONE Stop: 04/07/20 18:55 Morphine Sulfate (Morphine) 2 mg IVPUSH ONETIME ONE Stop: 04/07/20 17:53 Last Admin: 04/07/20 17:58 Dose: 2 mg Documented by: Ondansetron HCl (Zofran) Confirm Administered Dose 4 mg .ROUTE .STK-MED ONE Stop: 04/07/20 18:54 Propofol (Diprivan 20 Ml) Confirm Administered Dose 200 mg .ROUTE .STK-MED ONE Stop: 04/07/20 18:54 Rocuronium [place] (Rocuronium [place]) Confirm Administered Dose 50 mg .ROUTE .STK-MED ONE Stop: 04/07/20 18:54 Rocuronium [place] (Rocuronium [place]) Confirm Administered Dose 50 mg .ROUTE .STK-MED ONE Stop: 04/07/20 18:57 Sugammadex Sodium ([place]) Confirm Administered Dose 200 mg .ROUTE .STK-MED ONE Stop: 04/07/20 18:58
[2020-04-07] MEDS ORDERED: Acetaminophen 325 MG Tab PO PRN (20:37)
[2020-04-07] MEDS ORDERED: Ondansetron 4 MG/2 ML SDV IVPUSH PRN (20:37)
[2020-04-07] MEDS ORDERED: Morphine 10 MG/ML Syringe IVPUSH PRN (20:38)
--- NOTE | 2020-04-07 20:41 | PCM.OPNOTE ---
- General Post-Op/Procedure Note Date of Surgery/Procedure: 04/07/20 Operative Procedure(s): Laparoscopic appendectomy Pre Op Diagnosis: Acute abdomen Post-Op Diagnosis: Acute nonruptured appendicitis Anesthesia Technique: General ET Tube (ASA IIE) Primary Surgeon: Solitario Mora Seamer Panty Hose: Danni Paul Fluid Replacement, Intraop: 1,600 Output, Urine Amount: 40 EBL in mLs: 10 Condition: Good Free Text/Narrative:: Intake & Output 04/07/20 04/07/20 04/08/20 11:59 19:59 03:59 Output Total 40 Balance -40 DICTATION [id number] CPT CODE [id number]
--- NOTE | 2020-04-07 21:04 | OR ---
SURGEON: Solitario Mora M.D. DATE OF PROCEDURE: 04/07/2020 OPERATION PERFORMED: Laparoscopic appendectomy. PRIMARY SURGEON: Solitario Mora MD. FURNITURE RENTAL CONSULTANT: Crew Leader: HERNANDEZ Champion student. ANESTHESIA: General endotracheal. ASA CLASSIFICATION: IIE. PREOPERATIVE DIAGNOSIS: Acute abdomen. POSTOPERATIVE DIAGNOSIS: Acute nonruptured appendicitis. ESTIMATED BLOOD LOSS: 10 mL. INTRAOPERATIVE FLUID REPLACEMENT: 1600 mL of crystalloid. INTRAOPERATIVE URINARY OUTPUT: 40 mL. DESCRIPTION OF PROCEDURE: The patient was taken to the operating room and placed on the operating table in the supine position. Time-out was called for appropriate identification of the patient and procedure. Sequential compression boots were placed. Following satisfactory attainment of general endotracheal anesthesia, a Hughes catheter was placed in the patient's urinary bladder. The abdomen was prepped with DuraPrep solution. Sterile drapes were applied. The skin just above the umbilicus was infiltrated with 0.5% Marcaine solution. Skin incision was made and deepened through the subcutaneous tissue obtaining hemostasis with the use of electrocautery. The Veress needle was introduced into the peritoneal cavity. Saline drop test was positive. Carbon dioxide pneumoperitoneum was established with the release set at 13 cm of water. Once satisfactory pneumoperitoneum was established, the Veress needle was removed and a 5 mm camera and port were placed. Once these were placed, the patient was positioned with his head down and rolled to the left. Under camera vision, 12 mm suprapubic and 5 mm left lower quadrant ports were placed. Each incision was preemptively infiltrated with 0.5% Marcaine solution. The appendix was acutely inflamed, was not in a retrocecal position. Once the appendix was mobilized, the mesoappendix was taken down with the Harmonic scalpel. The appendix base was then transected using the Endo-LOULOU stapler with a blue load. This was a 45 mm stapler and adequately covered the base of the appendix. The appendix was properly placed in an Endo Catch and maintained in situ. The right lower quadrant was inspected for hemostasis and no bleeding was noted. The peritoneal cavity was then irrigated with 1% Ancef solution and all fluid that could be seen was aspirated. With that accomplished, the 12 mm suprapubic port and Endo Catch containing appendix were removed without difficulty. Again, under camera vision, the 5 mm left lower quadrant port was removed and finally the supraumbilical camera and port were removed. Wounds were inspected for hemostasis and small bleeding sites were electrocoagulated. The suprapubic and supraumbilical incisions were closed in 2 layers approximating the subcutaneous tissue with 3-0 Vicryl, and the skin with subcuticular 4-0 Monocryl. The left lower quadrant port was closed with subcuticular 4-0 Monocryl. All incisions were Steri-Stripped and dressed with sterile Tegaderm pads. Hughes catheter was removed prior to emergence from anesthesia. Following emergence from anesthesia and extubation, the patient was taken to recovery room in stable condition. YAMILETH / ADEOLA /[id number]
--- NOTE | 2020-04-07 21:11 | PCM.POSTAN ---
POST ANESTHESIA ASSESSMENT - MENTAL STATUS Mental Status: Alert - VITAL SIGNS Vital Signs: Last Vital Signs Temp 36.9 C 04/07/20 20:38 Pulse 82 04/07/20 21:03 Resp 13 04/07/20 21:03 BP 125/70 04/07/20 21:03 Pulse Ox 95 04/07/20 21:03 - RESPIRATORY Respiratory Status: Respiratory Rate WNL - CARDIOVASCULAR CV Status: Pulse Rate WNL - GASTROINTESTINAL GI Status: No Symptoms - POST OP HYDRATION Hydration Status: Adequate & Stable
[2020-04-07] MEDS: Lactated Ringers 1,000 ML IV SCH (21:50)
[2020-04-08] MEDS: cefOXitin 1 GM in Premix Bag 1 BAG IV SCH ×2 (00:14→06:26)
[2020-04-08] MEDS: Acetaminophen/HYDROcodone 325-5 MG Tab PO PRN ×2 (04:00→08:50)
[2020-04-08] MEDS: Lactated Ringers 1,000 ML IV SCH (05:46)
--- NOTE | 2020-04-08 07:44 | PCM48HPAN ---
Post Anesthesia Note - EVALUATION WITHIN 48HRS OF ANESTHETIC Vital Signs in Normal Range: Yes Patient Participated in Evaluation: Yes Respiratory Function Stable: Yes Airway Patent: Yes Cardiovascular Function Stable: Yes Hydration Status Stable: Yes Pain Control Satisfactory: Yes Nausea and Vomiting Control Satisfactory: Yes Mental Status Recovered: Yes Vital Signs: Last Vital Signs Temp 36.4 C 04/08/20 04:00 Pulse 65 04/08/20 04:00 Resp 18 04/08/20 04:00 BP 154/62 H 04/08/20 04:00 Pulse Ox 95 04/08/20 04:00
--- NOTE | 2020-04-08 08:50 | PCM.DCSUM1 ---
Discharge Summary - Hospital Course Free Text/Narrative:: Patient is a 79-year-old gentleman who presented to the emergency room with right lower quadrant abdominal pain. Workup including lab work and CT scan revealed an acute appendicitis. He was taken to the operating room on 04/07/2020 where he underwent a laparoscopic appendectomy. HPI Initial Comments: See dictated history and physical - Discharge Data Discharge Date: 04/08/20 Discharge Disposition: Home, Self-Care 01 Condition: Good - Referral to Home Health Primary Care Physician: Bebeto Martin MD - Discharge Diagnosis/Problem(s) (1) Appendicitis SNOMED Code(s): 90433304 ICD Code: K37 - UNSPECIFIED APPENDICITIS Status: Acute Priority: High Current Visit: Yes Qualifiers: Appendicitis type: acute appendicitis Acute appendicitis type: with localized peritonitis Appendicitis gangrene presence: without gangrene Appendicitis perforation presence: without perforation Appendicitis abscess presence: without abscess Qualified Code(s): K35.30 - Acute appendicitis with localized peritonitis, without perforation or gangrene - Patient Summary/Data Operative Procedure(s) Performed: Laparoscopic appendectomy - Patient Instructions Diet: Usual Diet as Tolerated Activity: No Lifting Over 25 Pounds (For 6 weeks) Driving: Do Not Drive (For 24 hours) Showering/Bathing: May Shower Wound/Incision Care: Keep Operative Site/Wound Site Clean and Dry Wound/Incision, Other: May shower over dressings and remove on post-operative day 2. Notify Provider of: Fever, Increased Pain Other/Special Instructions: See Dr. Mora in 7-10 days as scheduled. - Discharge Plan *PRESCRIPTION DRUG MONITORING PROGRAM REVIEWED*: No Home Medications: Home Meds Finasteride 5 mg PO DAILY 02/11/18 [History] Lisinopril 2.5 mg PO DAILY 02/11/18 [History] Loratadine [Claritin] 10 mg PO DAILY 02/11/18 [History] Multivit-Min/FA/Lycopen/Lutein [Centrum Silver Tablet] 1 tab PO DAILY 02/11/18 [History] metFORMIN HCl [Metformin HCl ER] 500 mg PO QPM 02/11/18 [History] Ascorbate Calcium [Vitamin C] 500 mg PO PCBREAKFAST 04/07/20 [History] Ascorbic Acid [Vitamin C] 1,000 mg PO PCDINNER 04/07/20 [History] Aspirin 81 mg PO DAILY 04/07/20 [History] Oxygen Therapy Mode: Room Air Forms: ED Department Discharge Referrals: Bebeto Martin MD [Primary Care Provider] - - Discharge Summary/Plan Comment DC Time >30 min.: No Discharge Summary/Plan Comment: Patient was given a prescription for [place] 5/325 one every 8 hours as needed for pain. 10 tablets dispensed without refills. Patient is to be seen in follow-up in my office. He was instructed not to lift more than 25 pounds for 6 weeks. - General Info Date of Service: 04/08/20 Admission Dx/Problem (Free Text: Admission Diagnosis/Problem Admission Diagnosis/Problem Appendicitis Functional Status: Reports: Pain Controlled, Tolerating Diet, Ambulating, Ur inating - Review of Systems General: Denies: Fever, Weakness, Fatigue, Malaise, Chills HEENT: Reports: No Symptoms Pulmonary: Denies: Shortness of Breath, Cough Cardiovascular: Denies: Chest Pain, Palpitations Gastrointestinal: Denies: Abdominal Pain, Constipation, Decreased Appetite, Diarrhea, Nausea, Vomiting Genitourinary: Denies: Dysuria, Frequency, Burning, Pain, Urgency Musculoskeletal: Denies: Shoulder Pain Skin: Denies: Mottled, Pallor Neurological: Reports: No Symptoms Psychiatric: Reports: No Symptoms - Patient Data Vitals - Most Recent: Last Vital Signs Temp 97.5 F 04/08/20 04:00 Pulse 65 04/08/20 04:00 Resp 18 04/08/20 04:00 BP 154/62 H 04/08/20 04:00 Pulse Ox 95 04/08/20 04:00 Weight - Most Recent: 180 lb I&O - Last 24 hours: Intake & Output 04/07/20 04/08/20 04/08/20 19:59 03:59 11:59 Intake Total 3650 1055 Output Total 40 40 600 Balance -40 3610 455 Lab Results - Last 24 hrs: Laboratory Results - last 24 hr 04/07/20 04/07/20 04/07/20 Range/Units 15:39 15:39 15:39 WBC 13.74 H (4.0-11.0) K/uL RBC 5.08 (4.50-5.90) M/uL Hgb 14.7 (13.0-17.0) g/dL Hct 44.2 (38.0-50.0) % MCV 87.0 (80.0-98.0) fL MCH 28.9 (27.0-32.0) pg MCHC 33.3 (31.0-37.0) g/dL RDW Std Deviation 43.8 (28.0-62.0) fl RDW Coeff of Horacio 14 (11.0-15.0) % Plt Count 264 (150-400) K/uL MPV 9.20 (7.40-12.00) fL Neut % (Auto) 80.2 H (48.0-80.0) % Lymph % (Auto) 11.4 L (16.0-40.0) % [place] % (Auto) 7.6 (0.0-15.0) % Eos % (Auto) 0.7 (0.0-7.0) % Baso % (Auto) 0.1 (0.0-1.5) % Neut # (Auto) 11.0 H (1.4-5.7) K/uL Lymph # (Auto) 1.6 (0.6-2.4) K/uL [place] # (Auto) 1.0 H (0.0-0.8) K/uL Eos # (Auto) 0.1 (0.0-0.7) K/uL Baso # (Auto) 0.0 (0.0-0.1) K/uL Nucleated RBC % 0.0 /100WBC Nucleated RBCs # 0 K/uL Sodium 128 L (136-148) mmol/L Potassium 4.2 (3.5-5.1) mmol/L Chloride 93 L (98-107) mmol/L Carbon Dioxide 25.6 (21.0-32.0) mmol/L BUN 12 (7.0-18.0) mg/dL Creatinine 0.8 (0.8-1.3) mg/dL Est Cr Clr Drug Dosing 81.05 mL/min Estimated GFR (MDRD) > 60.0 ml/min Glucose 92 (74-106) mg/dL Calcium 8.6 (8.5-10.1) mg/dL Total Bilirubin 0.4 (0.2-1.0) mg/dL AST 16 (15-37) IU/L ALT 26 (14-63) IU/L Alkaline Phosphatase 64 (46-116) U/L Total Protein 7.7 (6.4-8.2) g/dL Albumin 4.2 (3.4-5.0) g/dL Globulin 3.5 (2.6-4.0) g/dL Albumin/Globulin Ratio 1.2 (0.9-1.6) Urine Color YELLOW Urine Appearance CLEAR Urine pH 6.0 (5.0-8.0) Ur Specific [place] >= 1.030 (1.001-1.035) Urine Protein NEGATIVE (NEGATIVE) mg/dL Urine Glucose (UA) NEGATIVE (NEGATIVE) mg/dL Urine Ketones 40 H (NEGATIVE) mg/dL Urine Occult Blood NEGATIVE (NEGATIVE) Urine Nitrite NEGATIVE (NEGATIVE) Urine Bilirubin NEGATIVE (NEGATIVE) Urine Urobilinogen 0.2 (<2.0) EU/dL Ur Leukocyte Esterase NEGATIVE (NEGATIVE) COVID-19 (KYLEE) (NEGATIVE) 04/07/20 Range/Units 17:55 WBC (4.0-11.0) K/uL RBC (4.50-5.90) M/uL Hgb (13.0-17.0) g/dL Hct (38.0-50.0) % MCV (80.0-98.0) fL MCH (27.0-32.0) pg MCHC (31.0-37.0) g/dL RDW Std Deviation (28.0-62.0) fl RDW Coeff of Horacio (11.0-15.0) % Plt Count (150-400) K/uL MPV (7.40-12.00) fL Neut % (Auto) (48.0-80.0) % Lymph % (Auto) (16.0-40.0) % [place] % (Auto) (0.0-15.0) % Eos % (Auto) (0.0-7.0) % Baso % (Auto) (0.0-1.5) % Neut # (Auto) (1.4-5.7) K/uL Lymph # (Auto) (0.6-2.4) K/uL [place] # (Auto) (0.0-0.8) K/uL Eos # (Auto) (0.0-0.7) K/uL Baso # (Auto) (0.0-0.1) K/uL Nucleated RBC % /100WBC Nucleated RBCs # K/uL Sodium (136-148) mmol/L Potassium (3.5-5.1) mmol/L Chloride (98-107) mmol/L Carbon Dioxide (21.0-32.0) mmol/L BUN (7.0-18.0) mg/dL Creatinine (0.8-1.3) mg/dL Est Cr Clr Drug Dosing mL/min Estimated GFR (MDRD) ml/min Glucose (74-106) mg/dL Calcium (8.5-10.1) mg/dL Total Bilirubin (0.2-1.0) mg/dL AST (15-37) IU/L ALT (14-63) IU/L Alkaline Phosphatase (46-116) U/L Total Protein (6.4-8.2) g/dL Albumin (3.4-5.0) g/dL Globulin (2.6-4.0) g/dL Albumin/Globulin Ratio (0.9-1.6) Urine Color Urine Appearance Urine pH (5.0-8.0) Ur Specific [place] (1.001-1.035) Urine Protein (NEGATIVE) mg/dL Urine Glucose (UA) (NEGATIVE) mg/dL Urine Ketones (NEGATIVE) mg/dL Urine Occult Blood (NEGATIVE) Urine Nitrite (NEGATIVE) Urine Bilirubin (NEGATIVE) Urine Urobilinogen (<2.0) EU/dL Ur Leukocyte Esterase (NEGATIVE) COVID-19 (KYLEE) NEGATIVE (NEGATIVE) Med Orders - Current: Current Medications Acetaminophen (Tylenol) 325 mg PO Q4H PRN PRN Reason: Fever Greater Than 101 Hydrocodone Bitart/Acetaminophen ([place] 325-5 Mg) 1 - 2 tab PO Q4H PRN PRN Reason: Pain (moderate 4-6) Last Admin: 04/08/20 04:00 Dose: 2 tab Documented by: Lactated Ringer's (Ringers, Lactated) 1,000 mls @ 150 mls/hr IV ASDIRECTED [facility] Last Admin: 04/07/20 18:44 Dose: 150 mls/hr Documented by: Lactated Ringer's (Ringers, Lactated) 1,000 mls @ 125 mls/hr IV ASDIRECTED [facility] Last Admin: 04/08/20 05:46 Dose: 125 mls/hr Documented by: Cefoxitin Sodium 1 gm/ Premix 50 mls @ 100 mls/hr IV Q6H [facility] Stop: 04/08/20 13:29 Last Admin: 04/08/20 06:26 Dose: 100 mls/hr Documented by: Morphine Sulfate (Morphine) 0 mg IVPUSH Q1H PRN PRN Reason: Pain (severe 7-10) Ondansetron HCl (Zofran) 4 mg IVPUSH Q6H PRN PRN Reason: Nausea/Vomiting Sodium Chloride (Saline Flush) 10 ml FLUSH ASDIRECTED PRN PRN Reason: Keep Vein Open Sodium Chloride (Saline Flush) 2.5 ml FLUSH ASDIRECTED PRN PRN Reason: Keep Vein Open Discontinued Medications Bupivacaine HCl (Sensorcaine-Mpf 0.5%) Confirm Administered Dose 10 ml .ROUTE .STK-MED ONE Stop: 04/07/20 18:16 Cefazolin Sodium (Ancef) Confirm Administered Dose 1 gm .ROUTE .STK-MED ONE Stop: 04/07/20 18:16 Fentanyl (Sublimaze) Confirm Administered Dose 250 mcg .ROUTE .STK-MED ONE Stop: 04/07/20 18:55 Fentanyl (Sublimaze) 50 mcg IVPUSH Q5M PRN PRN Reason: Pain Sodium Chloride (Normal Saline) 1,000 mls @ 999 mls/hr IV STAT ONE Stop: 04/07/20 16:06 Last Admin: 04/07/20 15:58 Dose: 999 mls/hr Documented by: Cefoxitin Sodium 2 gm/ Premix 50 mls @ 100 mls/hr IV ONETIME ONE Stop: 04/07/20 19:04 Last Admin: 04/07/20 18:44 Dose: 100 mls/hr Documented by: Lactated Ringer's (Ringers, Lactated) 1,000 mls @ 125 mls/hr IV ASDIRECTED [facility]ZMAN Acetaminophen 1,000 mg/ Premix 100 mls @ 400 mls/hr IV Q6H PRN PRN Reason: Pain Iopamidol (Isovue Multipack-370 (76%)) 100 ml IVPUSH ONETIME ONE Stop: 04/07/20 17:02 Last Admin: 04/07/20 17:01 Dose: 100 ml Documented by: Ketorolac Tromethamine (Toradol) Confirm Administered Dose 30 mg .ROUTE .STK-MED ONE Stop: 04/07/20 18:59 Lidocaine HCl (Xylocaine 2%) Confirm Administered Dose 100 mg .ROUTE .STK-MED ONE Stop: 04/07/20 18:54 Midazolam HCl (Versed 1 Mg/Ml) Confirm Administered Dose 2 mg .ROUTE .STK-MED ONE Stop: 04/07/20 18:55 Morphine Sulfate (Morphine) 2 mg IVPUSH ONETIME ONE Stop: 04/07/20 17:53 Last Admin: 04/07/20 17:58 Dose: 2 mg Documented by: Ondansetron HCl (Zofran) Confirm Administered Dose 4 mg .ROUTE .STK-MED ONE Stop: 04/07/20 18:54 Propofol (Diprivan 20 Ml) Confirm Administered Dose 200 mg .ROUTE .STK-MED ONE Stop: 04/07/20 18:54 Rocuronium [place] (Rocuronium [place]) Confirm Administered Dose 50 mg .ROUTE .STK-MED ONE Stop: 04/07/20 18:54 Rocuronium [place] (Rocuronium [place]) Confirm Administered Dose 50 mg .ROUTE .STK-MED ONE Stop: 04/07/20 18:57 Sugammadex Sodium (Bridion) Confirm Administered Dose 200 mg .ROUTE .STK-MED ONE Stop: 04/07/20 18:58 - Exam Quality Assessment: Reports: DVT Prophylaxis. Denies: Supplemental Oxygen General: Reports: Alert, Oriented, Cooperative, No Acute Distress HEENT: Reports: Pupils Equal, Pupils Reactive. Denies: Scleral Icterus Neck: Reports: Supple, Trachea Midline Lungs: Reports: Clear to Auscultation, Normal Respiratory Effort Cardiovascular: Reports: Regular Rate, Regular Rhythm, No Murmurs. Denies: Tachycardia GI/Abdominal Exam: Normal Bowel Sounds, Soft, Non-Tender. No: Guarding, Rigid, Rebound (Male) Exam: Deferred Rectal (Males) Exam: Deferred Back Exam: Reports: Normal Inspection Extremities: Normal Inspection, Normal Range of Motion, Non-Tender Skin: Reports: Warm, Dry, Intact Wound/Incisions: Reports: Healing Well, Dressing Dry and Intact, No Drainage Neurological: Reports: No New Focal Deficit Psy/Mental Status: Reports: Alert, Normal Affect, Normal Mood Discharge Operative/Procedures - Procedures Performed Operations/Procedure Comment: Laparoscopic appendectomy
== END 2020-04-08 10:30 | disposition home or self-care (01) ==
LOC: MW.ED 14:39 → MW.SDS 17:57 → MW.MS 19:44 → MW.SDS 20:44 → MW.MS 20:44
PROVIDERS: ADMIT Surgery; ATTEND Surgery
DX: K35.80 Unspecified acute appendicitis (principal); Z11.59 Encounter for screening for other viral diseases; Z79.899 Other long term (current) drug therapy; Z88.1 Allergy status to other antibiotic agents
CPT/HCPCS: 36415; 44970; 74177; 80053; 81003; 85025; 88305; 96365; 96375; 99285; A9270; G0378; J0690; J0694; J1885; J2001; J2250; J2270; J2704; J3010; J3490; J7030; J7120; Q9967; U0002; 00840; 99219; J2405

== ENCOUNTER 2025-02-13 06:26 | Day surgery (SDC) | payer MEDICARE, OTHER ==
[~2025-02-13 06:26] MED LIST changes: +Albuterol 0.083% 2.5 MG/3 ML Neb Soln NEB PRN; +HYDROmorphone 1 MG/ML Syringe IVPUSH PRN; -Lactated Ringers 1,000 ML IV SCH; +Metoclopramide 10 MG/2 ML SDV IVPUSH PRN; +Morphine 2 MG/ML SYRINGE IVPUSH PRN; +Naloxone 0.4 MG/ML SDV IVPUSH PRN; +Ondansetron 4 MG/2 ML SDV IVPUSH PRN; +Phenylephrine HCl In 0.9% NaCl 1 MG/10 ML Syringe IVPUSH PRN; +ceFAZolin 2 GM in Water For Injection, Sterile 20 ML IVPUSH ONE; +fentaNYL 50 MCG/ML SDV IVPUSH PRN
[2025-02-13] MEDS ORDERED: Bupivacaine 0.5% 30 ML SDV ONE (07:19)
[2025-02-13] MEDS ORDERED: Ropivacaine 0.5% 5 MG/ML 30 ML SDV ONE (07:20)
[2025-02-13] MEDS ORDERED: ceFAZolin 1 GM Vial ONE ×2 (07:20→07:54)
[2025-02-13] MEDS ORDERED: fentaNYL 100 MCG/2 ML SDV ONE (07:21)
[2025-02-13] MEDS ORDERED: Midazolam 1 MG/ML 2 ML SDV ONE (07:21)
[2025-02-13] MEDS ORDERED: Propofol 200 MG/20 ML SDV ONE (07:21)
[2025-02-13] MEDS ORDERED: Lidocaine 2% 5 ML SDV ONE (07:22)
[2025-02-13] MEDS: Lactated Ringers 1,000 ML IV SCH (07:22)
[2025-02-13] MEDS ORDERED: Sodium Chloride 0.9% 20 ML ONE (07:23)
[2025-02-13] MEDS ORDERED: dexmedeTOMIDine HCl 200 MCG/2 ML SDV ONE (07:23)
[2025-02-13] MEDS ORDERED: Rocuronium Bromide 50 MG/5 ML Syringe ONE ×2 (07:44→08:27)
[2025-02-13] MEDS ORDERED: ePHEDrine 50 MG/ML SDV ONE (08:08)
[2025-02-13] MEDS ORDERED: Ketorolac 30 MG/ML SDV ONE (08:55)
[2025-02-13] MEDS ORDERED: Sugammadex Sodium 200 MG/2 ML VIAL IV ONE (08:55)
[2025-02-13] MEDS ORDERED: Ondansetron 4 MG/2 ML SDV ONE (08:55)
[2025-02-13] MEDS ORDERED: Morphine 4 MG/ML Syringe IVPUSH PRN (09:23)
[2025-02-13] MEDS ORDERED: Ondansetron 4 MG/2 ML SDV IVPUSH PRN (09:23)
[2025-02-13] MEDS ORDERED: Acetaminophen/HYDROcodone 325-5 MG Tab PO PRN (09:23)
[2025-02-13] MEDS ORDERED: Lactated Ringers 1,000 ML IV SCH (09:30)
== END 2025-02-13 11:35 | disposition home or self-care (01) ==
LOC: MW.SDS 06:26
PROVIDERS: ATTEND Surgery
DX: K40.90 Unilateral inguinal hernia, without obstruction or gangrene, not specified as recurrent (principal); I10 Essential (primary) hypertension; Z79.899 Other long term (current) drug therapy
CPT/HCPCS: 49505; 64488; C1781; J0665; J0690; J1885; J2003; J2250; J2704; J2795; J3010; J7120; 00830; 64486; 99100; J2405; J3490

== ENCOUNTER 2025-05-16 09:22 | Emergency (ER) | payer MEDICARE, OTHER ==
[2025-05-16] MEDS ORDERED: Sodium Chloride 0.9% 10 ML Syringe FLUSH PRN ×2 (10:36→12:00)
[2025-05-16] MEDS ORDERED: Sodium Chloride 0.9% 2.5 ML Syringe FLUSH PRN ×2 (10:36→12:00)
[2025-05-16 11:08] LABS: APPEARANCE,URINE SLT CLOUDY; GLUCOSE,URINE 100 mg/dL (NEGATIVE); OCCULT BLOOD,URINE NEGATIVE (NEGATIVE)
[2025-05-16 11:19] LABS: BASOPHILS ABSOLUTE AUTO 0.02 K/uL (0.00-0.20); BASOPHILS PERCENT AUTO 0.1 % (0.0-1.0); EOSINOPHILS ABSOLUTE AUTO 0.03 K/uL (0.00-0.45); EOSINOPHILS PERCENT AUTO 0.2 % (0.0-6.0); IMMATURE GRAN ABSOLUTE AUTO 0.06 K/uL (0.00-0.05); IMMATURE GRAN PERCENT AUTO 0.4 % (0.0-0.4); LYMPHOCYTES ABSOLUTE AUTO 0.87 K/uL (1.00-4.80); LYMPHOCYTES PERCENT AUTO 6.1 % (24.0-44.0); MEAN PLATELET VOLUME 9.0 fL (9.4-12.4); MONOCYTES ABSOLUTE AUTO 1.01 K/uL (0.00-0.80); MONOCYTES PERCENT AUTO 7.1 % (0.0-8.0); NEUTROPHILS ABSOLUTE AUTO 12.19 K/uL (1.80-7.70); NEUTROPHILS PERCENT AUTO 86.1 % (41.0-71.0); NRBC ABSOLUTE 0.00 K/uL (0.00-0.02); NRBC PERCENT 0.0 /100WBC (0.0-0.2); PLATELET COUNT,PLT 237 K/uL (150-400); RED BLOOD CELL COUNT 4.84 M/uL (4.52-5.90); WHITE BLOOD CELL COUNT,WBC 14.18 K/uL (3.9-11.3)
[2025-05-16 11:22] LABS: EPITHELIAL CELLS,URINE MODERATE (NONE-FEW)
[2025-05-16 11:50] LABS: A/G RATIO 0.9 (0.9-1.6); ALANINE AMINOTRANSFERASE,ALT 475.0 IU/L (14-63); ASPARTATE AMNIOTRANSFERASE,AST 160.0 IU/L (15-37); BILIRUBIN TOTAL 4.6 mg/dL (0.2-1.0); BLOOD UREA NITROGEN,BUN 21.0 mg/dL (7.0-18.0); CARBON DIOXIDE,CO2 25.8 mmol/L (21.0-32.0); CHLORIDE,CL 94.0 mmol/L (98-107); CREATININE 1.0 mg/dL (0.8-1.3); EST CRCL DRUG DOSING (CG) 59.61 mL/min; GLUCOSE RANDOM 113.0 mg/dL (74-106); POTASSIUM,K 4.0 mmol/L (3.5-5.1); PROTEIN TOTAL,TP 6.9 g/dL (6.4-8.2); SODIUM,NA 130.0 mmol/L (136-148)
[2025-05-16 11:57] LABS: ESTIMATED GFR 75.0 mL/min (>60)
[2025-05-16] MEDS: Iopamidol 755 MG/ML 500 ML Multipack Bottle IVPUSH STA (12:43)
[2025-05-16] MEDS: Ondansetron 4 MG/2 ML SDV IVPUSH ONE ×2 (13:32→16:56)
[2025-05-16] MEDS: Pantoprazole 40 MG in Sodium Chloride 0.9% 10 ML IVPUSH ONE (13:32)
[2025-05-16] MEDS: Alum Hydrox/Mag Hydrox/Simeth 15 ML, Lidocaine 2% 5 ML PO ONE (13:33)
[2025-05-16 13:44] LABS: LACTIC ACID 1.7 mmol/L (0.4-2.0)
[2025-05-16] MEDS: Benzocaine 20% Topical Spray UD MUCMEM ONE (15:54)
[2025-05-16] MEDS: Lidocaine 2% Viscous Solution 15 ML UD PO ONE (15:54)
[2025-05-16] MEDS ORDERED: Naloxone 0.4 MG/ML SDV IVPUSH PRN (16:35)
[2025-05-16 20:07] LABS: INR 1.02 (0.86-1.11); PTT,PARTIAL THROMBOPLSTIN TIME 22.5 SEC (23.9-30.7)
== END 2025-05-16 21:01 ==
LOC: MW.ED 09:22
DX: K83.09 Other cholangitis (principal); R74.01 Elevation of levels of liver transaminase levels; K86.89 Other specified diseases of pancreas; I10 Essential (primary) hypertension; E11.9 Type 2 diabetes mellitus without complications; Z88.2 Allergy status to sulfonamides; Z79.899 Other long term (current) drug therapy; Z79.84 Long term (current) use of oral hypoglycemic drugs
CPT/HCPCS: 36415; 43752; 74177; 76705; 80053; 81001; 83605; 83690; 83735; 85025; 85610; 85730; 87040; 96365; 96375; 99285; A9270; J2405; J2470; J2543; J7030; Q9967; 99284